=== PATIENT | female | born 1950 | race Caucasian/White ===

== ENCOUNTER 2021-06-08 15:21 | Emergency (ER) | payer MEDICARE ==
[~2021-06-08] VITALS: Ht 157.5 cm; Wt 93.2 kg
[2021-06-08 16:04] VITALS: TEMP 98.1
[2021-06-08] MEDS ORDERED: CEPHALEXIN500 M1 PO (17:30)
[2021-06-08 17:54] VITALS: BP 128/78; PULSE 68
== END 2021-06-08 17:55 | disposition home or self-care (01) ==
LOC: COL.ER 15:21
DX: S51.001A Unspecified open wound of right elbow, initial encounter (principal); Z88.5 Allergy status to narcotic agent; Z23 Encounter for immunization; W19.XXXA Unspecified fall, initial encounter; Y92.512 Supermarket, store or market as the place of occurrence of the external cause

== ENCOUNTER → 2021-07-20 | Outpatient (CLI) | payer MEDICARE ==
[~2021-07-20] MED LIST: CEPHALEXIN500 M1 PO
== END ==
LOC: MC.RAD 14:00
DX: Z12.31 Encounter for screening mammogram for malignant neoplasm of breast (principal)

== ENCOUNTER → 2022-05-08 | Outpatient (CLI) | payer MEDICARE | LOC: MHCPAIN 12:48 | DX: M54.50 Low back pain, unspecified (principal); M53.3 Sacrococcygeal disorders, not elsewhere classified; M47.817 Spondylosis without myelopathy or radiculopathy, lumbosacral region; E11.9 Type 2 diabetes mellitus without complications; M54.16 Radiculopathy, lumbar region | CPT/HCPCS: G0463 ==

== ENCOUNTER → 2022-05-21 | Outpatient (CLI) | payer MEDICARE | LOC: MHCPAIN 12:36 | DX: M47.816 Spondylosis without myelopathy or radiculopathy, lumbar region (principal); M96.1 Postlaminectomy syndrome, not elsewhere classified; M53.3 Sacrococcygeal disorders, not elsewhere classified; M54.16 Radiculopathy, lumbar region | CPT/HCPCS: J1100; Q9967 ==

== ENCOUNTER → 2022-12-03 | Outpatient (CLI) | payer MEDICARE | LOC: MHCPAIN 09-10 14:26 | DX: M53.3 Sacrococcygeal disorders, not elsewhere classified (principal); M47.817 Spondylosis without myelopathy or radiculopathy, lumbosacral region | CPT/HCPCS: G0260; J1040; Q9967 ==

== ENCOUNTER → 2023-01-29 | Outpatient (CLI) | payer MEDICARE ==
[~2023-01-29] MED LIST changes: +MACROBID 1100 MG/CAP PO; +ZOFRAN ODT4 MG PO
== END ==
LOC: MHCPAIN 10-25 10:35
DX: M54.16 Radiculopathy, lumbar region (principal); M54.50 Low back pain, unspecified; M53.3 Sacrococcygeal disorders, not elsewhere classified; E11.9 Type 2 diabetes mellitus without complications
CPT/HCPCS: G0463

== ENCOUNTER → 2023-11-28 | Outpatient (CLI) | payer MEDICARE ==
[~2023-11-28] MED LIST changes: +Lidocaine PF 2% (20 MG/ML) 5 ML VIAL ONE; +Midazolam 2 MG/2 ML VIAL ONE; +fentaNYL 50 MCG/ML 2 ML VIAL ONE
== END ==
LOC: MHCPAIN 08:40
DX: M47.817 Spondylosis without myelopathy or radiculopathy, lumbosacral region (principal); M54.50 Low back pain, unspecified
CPT/HCPCS: J0665; J2250; J3010

== ENCOUNTER → 2024-01-13 | Outpatient (CLI) | payer MEDICARE ==
[~2024-01-13] MED LIST changes: +Iohexol 300 - 10 ML VIAL ONE; -Lidocaine PF 2% (20 MG/ML) 5 ML VIAL ONE; -Midazolam 2 MG/2 ML VIAL ONE; -fentaNYL 50 MCG/ML 2 ML VIAL ONE
== END ==
LOC: MHCPAIN 12:05
DX: M46.1 Sacroiliitis, not elsewhere classified (principal); M54.50 Low back pain, unspecified; M53.3 Sacrococcygeal disorders, not elsewhere classified; M47.898 Other spondylosis, sacral and sacrococcygeal region
CPT/HCPCS: G0260; J0665; J1040; Q9967

== ENCOUNTER → 2024-02-26 | Outpatient (CLI) | payer MEDICARE ==
[~2024-02-26] MED LIST changes: -Iohexol 300 - 10 ML VIAL ONE
== END ==
LOC: MHCPAIN 14:17
DX: M47.896 Other spondylosis, lumbar region (principal); M96.1 Postlaminectomy syndrome, not elsewhere classified
CPT/HCPCS: G0463

== ENCOUNTER 2024-08-07 17:14 | Inpatient (IN) | payer MEDICARE ==
[~2024-08-07] VITALS: Ht 157.5 cm; Wt 82.7 kg
[2024-08-07] MEDS ORDERED: BUSPAR10 MG PO (17:29)
[2024-08-07] MEDS ORDERED: CELEXA 20MG20 MG/TAB PO (17:29)
[2024-08-07] MEDS ORDERED: PROTONIX 40MG T40 MG PO (17:30)
[2024-08-07] MEDS ORDERED: PRAVACHOL80 MG PO (17:30)
[2024-08-07] MEDS ORDERED: TOPROL XL 25MG25 MG PO (17:31)
[2024-08-07] MEDS ORDERED: MOBIC 7.5MG7.5 MG PO (17:31)
[2024-08-07] MEDS ORDERED: PRINIVIL40 MG PO (17:32)
[2024-08-07] MEDS ORDERED: XYZAL5 MG PO (17:32)
[2024-08-07] MEDS ORDERED: ARICEPT 5MG PO (17:33)
[2024-08-07] MEDS ORDERED: AMBIEN 5MG TABLE5 MG PO (17:34)
[2024-08-07 18:09] LABS: PROTHROMBIN TIME 11.1 SECONDS (9.7-12.8)
[2024-08-07 18:11] LABS: ACETONE,SERUM NEGATIVE
[2024-08-07 18:17] LABS: ALANINE AMINOTRANSFERASE 17 U/L (0-55); ALBUMIN 3.5 g/dL (3.4-4.8); ALKALINE PHOSPHATASE 90 U/L (40-150); ANION GAP 14 mmol/L (7-16); AST,SGOT 33 U/L (5-34); BILIRUBIN,TOTAL 0.9 mg/dL (0.2-1.2); BLOOD UREA NITROGEN 10 mg/dL (10-20); CALCIUM 9.6 mg/dL (8.4-10.2); CHLORIDE 100 mEq/L (98-107); CREATININE, serum 0.93 mg/dL (0.57-1.11); LIPASE 30 U/L (8-78); POTASSIUM 4.5 mEq/L (3.5-4.5); SODIUM 134 mEq/L (136-145)
[2024-08-07 18:22] LABS: GLUCOSE 499 mg/dL (70-99)
[2024-08-07 18:34] LABS: BASO # 0.1 K/mm3 (0.0-0.2); BASO % 0.8 % (0.0-2.0); EOS # 0.1 K/mm3 (0.0-0.7); EOS % 0.5 % (0.0-4.0); GRAN # 5.6 K/mm3 (1.4-6.5); GRAN % 61.1 % (42.2-75.2); HEMATOCRIT 29.6 % (37.0-47.0); HEMOGLOBIN 7.5 g/dl (12.5-16.0); LYMPH # 2.7 K/mm3 (1.2-3.4); LYMPH % 29.7 % (20.0-51.0); MEAN CELL VOLUME 75 fl (80.0-100.0); MEAN CORPUSCULAR HEMOGLOBIN 19 pg (27-31); MEAN CORPUSCULAR HGB CONC 25 g/dl (33.0-37.0); MEAN PLATELET VOLUME 11.2 fl (7.4-10.4); MONO # 0.7 K/mm3 (0.1-0.6); MONO % 7.6 % (1.7-9.3); PLATELET COUNT 258 K/mm3 (130-400); RED BLOOD COUNT 3.95 M/mm3 (4.10-5.30)
[2024-08-07 18:43] LABS: TSH w REFLEX 1.565 uIU/mL (0.350-4.940)
[2024-08-07 18:47] LABS: TROPONIN-I < 0.010 ng/mL (0.00-0.033)
[2024-08-07] MEDS ORDERED: Iohexol 300 - 100 ML VIAL IV ONE (18:59)
[2024-08-07] MEDS ORDERED: NS 50 ML IV ONE (19:00)
[2024-08-07] MEDS ORDERED: NS 500 ML IV ONE (19:15)
[2024-08-07 19:27] LABS: COLLECTION METHOD CLEAN CATCH
[2024-08-07 19:43] LABS: URINE APPEARANCE CLEAR (CLEAR/HAZY); URINE BLOOD NEGATIVE (NEGATIVE); URINE COLOR YELLOW (YELLOW); URINE GLUCOSE 3+ (NEGATIVE); URINE KETONE 1+ (NEGATIVE); URINE NITRATE POSITIVE (NEGATIVE); URINE PROTEIN(semi-quant) NEGATIVE (NEGATIVE); URINE UROBILINOGEN 0.2 E.U/dL (0.2-1.0)
[2024-08-07] MEDS ORDERED: Insulin Regular Human (NovoLIN R/HumuLIN R) IV ONE (20:15)
[2024-08-07] MEDS ORDERED: 1: LR 1,000 ML 2: NS 1,000 ML IV SCH (20:30)
[2024-08-07] MEDS ORDERED: Glucagon 1 MG VIAL IM PRN (20:45)
[2024-08-07] MEDS ORDERED: Dextrose (Glucose) 15 GM (4 x 3.75 GM) Chewable TABLET PACK PO PRN (20:45)
[2024-08-07] MEDS ORDERED: Dextrose 50% Water 25 GM/50 ML SYRINGE IV PRN (20:45)
[2024-08-07] MEDS ORDERED: Donepezil 5 MG TAB PO SCH (21:00)
[2024-08-07] MEDS ORDERED: Pantoprazole 40 MG in NS 10 ML IV SCH (21:00)
[2024-08-07] MEDS ORDERED: busPIRone 5 MG TAB PO SCH (21:00)
[2024-08-07 21:30] VITALS: BP 147/69; PULSE 99; TEMP 98.4
--- NOTE | 2024-08-07 21:30 | NUR ---
PT TO FLOOR AT THIS TIME WITH NAI (DAUGHTER) AT BEDSIDE.
[2024-08-07] MEDS ORDERED: Zolpidem 5 MG TAB PO ONE (22:15)
[2024-08-07] MEDS ORDERED: cefTRIAXone 2 G in Water For Injection,Sterile 20 ML IV SCH (22:30)
[2024-08-07 23:38] VITALS: BP 139/74; PULSE 84; TEMP 98.2
[2024-08-08] VITALS (19 sets, daily range): BP systolic 116–149; BP diastolic 55–77; PULSE 80–120; TEMP 97.4–98.9
[2024-08-08] MEDS ORDERED: Insulin Lispro (HumaLOG) SQ SCH
--- NOTE | 2024-08-08 05:12 | NUR ---
PT NOTED TO HAVE MORE CONFUSION THROUGHOUT THE NIGHT. PT SET BED ALARM OFF MULTIPLE TIMES WITHOUT CALLING OUT TO GO TO THE BATHROOM. PT REORIENTED TO CALL LIGHT.
[2024-08-08 06:04] LABS: BASO # 0.1 K/mm3 (0.0-0.2); BASO % 0.9 % (0.0-2.0); EOS # 0.1 K/mm3 (0.0-0.7); EOS % 1.9 % (0.0-4.0); GRAN % 56.5 % (42.2-75.2); LYMPH # 2.2 K/mm3 (1.2-3.4); LYMPH % 31.7 % (20.0-51.0); MEAN CELL VOLUME 74 fl (80.0-100.0); MEAN CORPUSCULAR HGB CONC 26 g/dl (33.0-37.0); MEAN PLATELET VOLUME 11.6 fl (7.4-10.4); MONO # 0.6 K/mm3 (0.1-0.6); MONO % 8.7 % (1.7-9.3); PLATELET COUNT 221 K/mm3 (130-400); RED BLOOD COUNT 3.74 M/mm3 (4.10-5.30); REDCELL DISTRIBUTION WIDTH-CV 19.2 % (11.5-14.5)
--- NOTE | 2024-08-08 06:11 | NUR ---
NOTIFIED MIKAL BAPTISTE AT 0605 OF INCIDENTS WHERE TOO MUCH INSULIN WAS GIVEN. BLOOD SUGAR 212. PT STABLE. NO NEW ORDERS.
[2024-08-08 06:12] LABS: HEMATOCRIT 27.8 % (37.0-47.0); HEMOGLOBIN 7.1 g/dl (12.5-16.0); MEAN CORPUSCULAR HEMOGLOBIN 19 pg (27-31)
[2024-08-08 06:30] LABS: CREATININE, serum 0.75 mg/dL (0.57-1.11); POTASSIUM 3.4 mEq/L (3.5-4.5)
[2024-08-08 06:51] LABS: THYROID STIMULATING HORMONE 2.423 uIU/mL (0.350-4.940)
[2024-08-08] MEDS ORDERED: Citalopram 20 MG TAB PO SCH (09:00)
[2024-08-08] MEDS ORDERED: Influenza Virus Vaccine, Hi-Dose Triv '24-25 (65 YR+) 0.5 ML SYRINGE IM SCH (09:00)
[2024-08-08] MEDS ORDERED: Ondansetron 4 MG/2 ML VIAL IV PRN (09:15)
--- NOTE | 2024-08-08 09:35 | NUR ---
Assessment completed. Pt a/o x3. Not able to state year. Denies pain. Plan for EGD/Colonoscopy later today. Fall precautions in place.
[2024-08-08] MEDS ORDERED: Polyethylene Glycol 3350 119 GM BOTTLE PO ONE (10:00)
--- NOTE | 2024-08-08 10:15 | NUR ---
telephone lineworker met with patient and contacted daughter, Debra Michael #[phone] via telephone to begin assessment and discharge planning. Patient lives alone and has a private duty agency for 6 hours/week and daughter's support to maintain living in her own home. Patient does not drive. PT/OT are ordered and will await their assessments. Debra states that she is not ready for patient to enter a [place] and she cannot afford additional private duty care in the home. Debra states that she plans to take patient to her home upon discharge. Worker left the Medicare.gov share with home health information for daughter to utilize. Patient has dementia, however, has been able to manage in her own home. Debra states that Dr Kim is patient's primary care provider and that she will bring in patient's advance directives. Debra states that she is patient's durable power of traffic law attorney. Worker collaborated with patient's nurse, Tiana regarding the above information. Discharge planning: Home to Debra's home with possibly home health services.
--- NOTE | 2024-08-08 12:25 | NUR ---
Data: Patient and two daughters accepted spiritual care visit offered during Processing Engineer rounds. Patient stated she is [place] despite being listed as [place] on census. Assessment: Daughters desire Cloth Grader Supervisor visit and saccrament of the sick. Plan of Care: Processing Engineer provided supportive listening and prayer. Processing Engineer contacted Cloth Grader Supervisor at [facility] for Cloth Grader Supervisor visit and saccrament of the sick. Processing Engineer requested denomination change by admissions in ED so that Patient will receive communion on Saturday. Chaplains will remain available as needed/requested while Patient is admitted to this hospital.
[2024-08-08] MEDS ORDERED: *Potassium Replacement Protocol MC SCH (14:15)
[2024-08-08] MEDS ORDERED: Potassium Bicarbonate/Citrate 20 MEQ Effervescent TAB PO SCH (14:15)
--- NOTE | 2024-08-08 14:57 | NUR ---
Patient to Endo with MARLA Sandy, via cart,
[2024-08-08] MEDS ORDERED: Polyethylene Glycol 3350 119 GM BOTTLE PO SCH (15:00)
[2024-08-08] MEDS ORDERED: Lidocaine PF 2% (20 MG/ML) 5 ML VIAL ONE (15:22)
--- NOTE | 2024-08-08 16:20 | NUR ---
Pt returned to room via cart. VSS- see flowsheet. Daughters at bedside. Pt denies pain or needs at this time.
--- NOTE | 2024-08-08 19:16 | NUR ---
Diet advanced to ADA and patient tolerated without c/o nausea. Denies pain. Fall precautions in place. Educated patient on the importance of calling instead of getting out of bed on her own. Patient voices understanding. Pt a/o throughout shift but forgetful. Blood sugars high- medicated with insulin per SSI order.
--- NOTE | 2024-08-08 20:00 | NUR ---
PT AWAKE AND RESTING IN BED. SCHEDULED MEDS GIVEN PER eMAR. DURING IV PUSH OF PROTONIX, FLUID BEGAN TO LEAK AROUND IV SITE. IV D/C IN RIGHT ANTECUBITAL. PT DENIES PAIN AT IV SITE OR ANY OTHER DISCOMFORT. UNSUCCESSFUL IV START ATTEMPT IN RIGHT WRIST. CHARGE NURSE NOTIFIED FOR ANOTHER IV ATTEMPT. PT A&OX4 BUT FORGETFUL, OFTEN GETS UP WITHOUT CALLING OUT, AND ASKS THE SAME QUESTIONS REPEATEDLY. PT EDUCATED SECOND HELPER LIGHT USE. BED ALARM ON AND CALL LIGHT WITHIN REACH.
[2024-08-08] MEDS ORDERED: Zolpidem 5 MG TAB PO SCH (21:00)
[2024-08-08] MEDS ORDERED: Pravastatin 20 MG TAB PO SCH (21:00)
--- NOTE | 2024-08-08 23:55 | NUR ---
THIS NURSE AWARE OF HEART RATE READING IN THE 110s AND 120s DURING Q4HR VITAL SIGN MONITORING. CHARGE NURSE (ELANA) NOTIFIED OF MEWS SCORE AT 2000 VITALS. THIS NURSE AND CHARGE NURSE ASSESSED PT TOGETHER. HEART RATE AUSCULATED AND READ 100BPM FOR 1 MIN. VERIFIED WITH RADIAL PULSE AND DYNAMAP. PT BELIEVED TO BE STARTLED UPON AWAKENING.
[2024-08-09] VITALS (17 sets, daily range): BP systolic 113–155; BP diastolic 48–85; PULSE 89–108; TEMP 97.6–99.7
[2024-08-09 06:51] LABS: BASO % 0.6 % (0.0-2.0); EOS # 0.1 K/mm3 (0.0-0.7); EOS % 0.9 % (0.0-4.0); GRAN # 3.9 K/mm3 (1.4-6.5); GRAN % 55.9 % (42.2-75.2); LYMPH # 2.3 K/mm3 (1.2-3.4); LYMPH % 32.9 % (20.0-51.0); MEAN CELL VOLUME 75 fl (80.0-100.0); MEAN CORPUSCULAR HGB CONC 25 g/dl (33.0-37.0); MEAN PLATELET VOLUME 11.4 fl (7.4-10.4); MONO # 0.7 K/mm3 (0.1-0.6); MONO % 9.6 % (1.7-9.3); PLATELET COUNT 205 K/mm3 (130-400); RED BLOOD COUNT 3.34 M/mm3 (4.10-5.30)
[2024-08-09 07:01] LABS: HEMATOCRIT 25.2 % (37.0-47.0); HEMOGLOBIN 6.4 g/dl (12.5-16.0); MEAN CORPUSCULAR HEMOGLOBIN 19 pg (27-31)
[2024-08-09 07:06] LABS: CALCIUM 8.7 mg/dL (8.4-10.2); CREATININE, serum 0.74 mg/dL (0.57-1.11); POTASSIUM 4.1 mEq/L (3.5-4.5)
--- NOTE | 2024-08-09 08:01 | NUR ---
Critical Hemaglobin result called to Dr. Villalpando. No new orders received at this time.
[2024-08-09] MEDS ORDERED: Influenza Virus Vaccine, Hi-Dose Triv '24-25 (65 YR+) 0.5 ML SYRINGE IM SCH (09:00)
[2024-08-09] MEDS ORDERED: Magnesium Sulfate 4% 50 ML IV ONE (09:30)
[2024-08-09] MEDS ORDERED: Insulin Glargine-ygfn (Lantus) SQ SCH (09:45)
--- NOTE | 2024-08-09 11:28 | NUR ---
SW visited with patient about if she had time to review HH agencies and select, patient informed SW that she believes that she already has HH established unsure on the agency and requested SW to contact her daughter (Debra) and inquire. SW called and left voicemail.
[2024-08-09] MEDS ORDERED: Insulin Lispro (HumaLOG) SQ SCH (12:00)
--- NOTE | 2024-08-09 14:00 | NUR ---
Patient and family educated on s/s blood transfusion reaction. Consent signed. Blood verified with MARLA Batista. Transfusion started at 60ml/hr to 20g diffusic to RAC.
[2024-08-09] MEDS ORDERED: Acetaminophen 325 MG TAB PO PRN (14:15)
--- NOTE | 2024-08-09 14:15 | NUR ---
1 unit of PRBC started at 1400. This nurse remained with the patient the first 15 minutes. Patient denies s/s blood transfusion reaction. See flowsheet for VS. Family at bedside.
--- NOTE | 2024-08-09 15:45 | NUR ---
Patient with no s/s blood transfusion reaction. Tranfusion increased to 160ml/hr. Patient denies pain or needs. Family at bedside.
--- NOTE | 2024-08-09 17:53 | NUR ---
Educated patient and patient's family on accucheck, insulin administration and consultation for diabetes education for 08/10. Pt SBA to BR. Fall precautions in place. Denies pain or needs. Family at bedside.
--- NOTE | 2024-08-09 20:00 | NUR ---
Assessment complete. A&Ox3. Forgetful. Denies nausea/shortness of breath. C/O tdfzymfn-ezosuzajduc-gaozoyo given per dr order. VS stable. Bedside glucose 272-SS insulin given per dr order. INT to right AC flushes without difficulty. NO s/s of infiltration noted. Plan of care discussed for this shift to include meds/pain control/calling for questions/concerns. Verbalizes understanding. Call light in reach. Will monitor.
[2024-08-10] VITALS (10 sets, daily range): BP systolic 119–162; BP diastolic 74–86; PULSE 77–105; TEMP 97.1–99
--- NOTE | 2024-08-10 00:30 | NUR ---
Patient resting eyes closed. No s/s of pain or discomfort noted. Call light in reach/bed alarm on. Will monitor.
--- NOTE | 2024-08-10 05:21 | NUR ---
Patient had an uneventful night. VS stable. Currently on RA. Denies pain/nausea/shortness of breath. NC WNL. Denies current needs. Call light in reach. Will monitor.
[2024-08-10 07:48] LABS: BASO # 0.1 K/mm3 (0.0-0.2); BASO % 0.8 % (0.0-2.0); EOS # 0.1 K/mm3 (0.0-0.7); EOS % 1.9 % (0.0-4.0); GRAN # 3.8 K/mm3 (1.4-6.5); GRAN % 52.1 % (42.2-75.2); LYMPH # 2.6 K/mm3 (1.2-3.4); LYMPH % 35.4 % (20.0-51.0); MEAN CELL VOLUME 75 fl (80.0-100.0); MEAN CORPUSCULAR HGB CONC 27 g/dl (33.0-37.0); MEAN PLATELET VOLUME 10.7 fl (7.4-10.4); MONO # 0.7 K/mm3 (0.1-0.6); MONO % 9.5 % (1.7-9.3); PLATELET COUNT 202 K/mm3 (130-400); REDCELL DISTRIBUTION WIDTH-CV 18.9 % (11.5-14.5)
[2024-08-10 07:49] LABS: HEMATOCRIT 30.1 % (37.0-47.0); HEMOGLOBIN 8.2 g/dl (12.5-16.0); MEAN CORPUSCULAR HEMOGLOBIN 21 pg (27-31)
[2024-08-10 08:02] LABS: CALCIUM 8.7 mg/dL (8.4-10.2); CREATININE, serum 0.78 mg/dL (0.57-1.11); POTASSIUM 4.1 mEq/L (3.5-4.5)
[2024-08-10] MEDS ORDERED: Ferrous Sulfate 325 MG TAB PO SCH (08:05)
[2024-08-10] MEDS ORDERED: Influenza Virus Vaccine, Hi-Dose Triv '24-25 (65 YR+) 0.5 ML SYRINGE IM SCH (09:00)
[2024-08-10] MEDS ORDERED: Insulin Glargine-ygfn (Lantus) SQ ONE (10:30)
--- NOTE | 2024-08-10 12:47 | NUR ---
08/10/[id number]-DIABETES EDUCATION CONSULT. 74YO FEMALE ADMITTED FOR HYPERGLYCEMIA/ANEMIA. HISTORY OF T2DM PREVIOUSLY DIET CONTROLLED. BLOOD GLUCOSE ON ADMIT 453 MG/DL, A1C 10.7%. PATIENT'S DAUGHTER, NAI, WAS IN THE ROOM AND STATES SHE WILL BE THIS PATIENT'S CAREGIVER PATIENT PLANS TO MOVE INTO NAI'S HOME UPON DISCHARGE. PROVIDED DEMONSTRATION ON HOW TO MONITOR BLOOD GLUCOSE USING A GLUCOMETER VIA FINGERSTICK. DAUGHTER NAI VERBALIZED UNDERSTANDING, BUT ALSO ASKS ABOUT GETTING A CONTINUOUS GLUCOSE MONITOR (CGM) FOR THE PATIENT. I RECOMMENDED THAT THEY ASK THEIR PCP ABOUT THIS ONCE PATIENT DISCHARGES. WE ALSO DISCUSSED PROPER INSULIN ADMINISTRATION TIPS DAUGHTER WAS CONCERNED ABOUT DOING THE INJECTIONS HERSELF. RECOMMEND ADDITIONAL TEACHING BY NURSING STAFF ON INSULIN INJECTIONS PRIOR TO PATIENT DISCHARGE. ALSO RECOMMEND ORDERING INSULIN IN A 'KWIKPEN' FORM DAUGHTER IS MORE COMFORTABLE WITH ADMINISTERING THIS VERSUS A SYRINGE. REVIEWED BASIC DIABETES DIET INFORMATION: HEALTHY PLATE STYLE OF EATING, LIMITING SUGAR SWEETENED BEVERAGES AND SWEETS/DESSERTS. RECOMMEND PATIENT BE SEEN FOR OUTPATIENT DIABETES EDUATION AFTER DISCHARGE; WILL SEND REFERRAL REQUEST TO PATIENT'S PCP DR. LILIBETH CASTILLO. LINNETTE MARTINEZ,MS,RD,CSSD,LD
[2024-08-10] MEDS ORDERED: TYLENOL 8 HR PO (13:34)
[2024-08-10] MEDS ORDERED: CENTRUM SILVER1 TAB PO (13:35)
--- NOTE | 2024-08-10 14:13 | NUR ---
Sample Box Maker spoke with patient's daughter, Debra to discuss discharge planning. Debra advised at time of discharge, patient will be moving to her home in [place]. SURYA discussed Home Health services with Debra who advised patient had [facility] at one point, however they did not have the best experience with some of the therapists and patient also would refuse at times. Debra's main concern is figuring out what patient's exact needs will be with monitoring glucose and medications. Debra can arrange her schedule to a certain point to help patient, but needs to know what all she will require. SURYA updated Hospitalist that Debra was at bedside and had questions about medications at time of discharge. SURYA will continue to follow up on Home Health if patient and Debra would like to establish services.
--- NOTE | 2024-08-10 19:00 | NUR ---
PATIENT SITTING UP IN BED WITH TV ON WITH FAMILY PRESENT WITH NO ACUTE DISRESS NOTED. PATIENT ON ROOM AIR. INT TO RIGHT AC INTACT WITH NO COMPLICATION NOTED. BEDSIDE SHIFT REPORT COMPLETED WITH JOHN AT THIS TIME. PATIENT DENEIS ANY NEEDS. BED IN LOW POSITION WITH WHEELS LOCKED WITH RAILS UP X3 AND CALL LIGHT WITHIN REACH.
--- NOTE | 2024-08-10 20:43 | NUR ---
PATIENT RESTING IN BED WITH TV ON WITH NO FAMILY PRESENT WITH NO ACUTE DISTRESS NOTED. PATIENT ON ROOM AIR. INT TO RIGHT AC INTACT WITH NO COMPLICATIONS NOTED. ASSESSMENT AND MEDICATION ADMINISTRATION COMPLETED AT THIS TIME. PATIENT TOLERATED WELL. PATIENT DENIES ANY NEEDS AT THIS TIME. BED IN LOW POSITION WITH WHEELS LOCKED WITH RAILS UP X3 AND CALL LIGHT WITHIN REACH.
[2024-08-11] VITALS (17 sets, daily range): BP systolic 111–142; BP diastolic 61–80; PULSE 74–87; TEMP 97.7–98.8
[2024-08-11 06:25] LABS: BASO # 0.1 K/mm3 (0.0-0.2); EOS # 0.2 K/mm3 (0.0-0.7); GRAN # 3.7 K/mm3 (1.4-6.5); GRAN % 53.9 % (42.2-75.2); LYMPH # 2.1 K/mm3 (1.2-3.4); LYMPH % 31.1 % (20.0-51.0); MEAN CELL VOLUME 76 fl (80.0-100.0); MEAN CORPUSCULAR HGB CONC 27 g/dl (33.0-37.0); MEAN PLATELET VOLUME 11.4 fl (7.4-10.4); MONO # 0.7 K/mm3 (0.1-0.6); MONO % 10.7 % (1.7-9.3); PLATELET COUNT 191 K/mm3 (130-400); RED BLOOD COUNT 3.78 M/mm3 (4.10-5.30); REDCELL DISTRIBUTION WIDTH-CV 19.3 % (11.5-14.5)
[2024-08-11 06:33] LABS: HEMATOCRIT 28.7 % (37.0-47.0); HEMOGLOBIN 7.8 g/dl (12.5-16.0); MEAN CORPUSCULAR HEMOGLOBIN 21 pg (27-31)
[2024-08-11 06:58] LABS: CREATININE, serum 0.7 mg/dL (0.57-1.11); POTASSIUM 3.8 mEq/L (3.5-4.5)
--- NOTE | 2024-08-11 07:45 | NUR ---
PATIENT ALERT AND ORIENTED X4 WITH SOME EPISODES OF BEING FORGETFUL. PATIENT ON ROOM AIR. PATIENT VSS WNL. PATIENT NPO AT THIS TIME. FLUIDS PLACED WITH GRAVITY TUBING FOR PROCEDURE. PATIENT DENIES PAIN OR ANY OTHER NEEDS AT THIS TIME. CALL LIGHT WITHIN REACH. BED AT LOWEST POSITION.
--- NOTE | 2024-08-11 07:52 | NUR ---
patient leaving for procedure at this time.
[2024-08-11] MEDS ORDERED: Iohexol 350 - 100 ML VIAL IV ONE (08:50)
[2024-08-11] MEDS ORDERED: Midazolam 2 MG/2 ML VIAL IV SCH (08:52)
[2024-08-11] MEDS ORDERED: fentaNYL 50 MCG/ML 2 ML VIAL IV SCH (08:53)
[2024-08-11] MEDS ORDERED: Insulin Glargine-ygfn (Lantus) SQ SCH ×2 (09:00→10:00)
--- NOTE | 2024-08-11 09:30 | NUR ---
Heather is transferred back to medical floor rm 315. She is awake and alert, pwd with reg and unlabored resps. cms intact to rle, dressing to rt groin site is clean and dry, area is soft. report and handoff of care to Arabella GUTIÉRREZ.
--- NOTE | 2024-08-11 11:02 | NUR ---
Reexaminer was notified by Hospitalist that patient could potentially be discharged later this afternoon. SURYA met with patient and her two daughters, Debra and Annabel. Patient stated she is ready to discharge and plan is to move in with her daughter, Debra here in [place]. SW revisited Home Health and patient is agreeable to have services set up for her. Patient and family would like to use [facility] as they have used them before. SURYA sent referral to Kevin at [facility] via secure email. SURYA also presented IM form to patient who verbalized understanding and provided signature. SURYA placed form in chart and provided copy to patient. Patient also indicated she would like to complete a new DPOA-HC while here and designate her daughters, Debra and Annabel. SURYA assisted patient in completing the form and SURYA and SURYA Almanza provided witness signatures. Patient also signed a Living Will per her request. SURYA placed copies of Advance Directives in patient's chart and provided copies to patient. [facility]
[2024-08-11] MEDS ORDERED: Potassium Bicarbonate/Citrate 20 MEQ Effervescent TAB PO ONE (12:30)
--- NOTE | 2024-08-11 12:30 | NUR ---
PATIENT GROIN SITE C/D/I. NO SIGNS OF BLEEDING AT THIS TIME. GAUZE AND TAPE DRESSING PLACED TO REPLACE THE PREVIOUS ONE. VSS WNL. PATIENT CALL LIGHT WITHIN REACH. BED AT LOWEST POSITION.
[2024-08-11 14:45] LABS: HEMATOCRIT 31.3 % (37.0-47.0); HEMOGLOBIN 8.5 g/dl (12.5-16.0)
[2024-08-11] MEDS ORDERED: FERRO-TIME325 MG PO (14:56)
[2024-08-11] MEDS ORDERED: LANTUS SOLOS100 U/ML SQ (14:58)
[2024-08-11] MEDS ORDERED: FREESTYLE PREC1 EAC5 MC (15:03)
[2024-08-11] MEDS ORDERED: GLUTOSE 1515 GM PO (15:03)
[2024-08-11] MEDS ORDERED: CONTROL SOLUTI1 EAC1 MC (15:03)
[2024-08-11] MEDS ORDERED: GLUCOSE TEST ST1 DEV MC (15:03)
[2024-08-11] MEDS ORDERED: INSULIN PEN NE1 EAC1 MC (15:03)
[2024-08-11] MEDS ORDERED: LANCETS MC (15:03)
[2024-08-11] MEDS ORDERED: PRINIVIL40 MG PO (15:15)
--- NOTE | 2024-08-11 15:24 | NUR ---
SURYA notes pt had discharge orders in. SURYA faxed these to [facility]. Discharge Orellana: live with dtr and home health
--- NOTE | 2024-08-11 17:33 | NUR ---
PATIENT DISCHARGE INSTRUCTIONS GIVEN. PATIENT AND FAMILY MEMBER VERBALIZED UNDERSTANDING. PATIENT RIGHT AC IV DISCONTINUED. PATIENT ESCORTED OUT OF UNIT BY WHEEL CHAIR BY PCT ACCOMPANIED BY FAMILY MEMBER.
== END 2024-08-11 17:35 | disposition home health service (06) | DRG 637 ==
LOC: COL.ER 17:14 → EDBEDREQ 20:31 → MEDICAL 20:36
PROVIDERS: Emergency Medicine; Hospitalist; Physician Assistant; Surgery; ADMIT Internal Medicine
PROC: 0DJ08ZZ Inspection of Upper Intestinal Tract, Via Natural or Artificial Opening Endoscopic (ICD-10-PCS; principal; 2024-08-08 15:30)
PROC: 0DJD8ZZ Inspection of Lower Intestinal Tract, Via Natural or Artificial Opening Endoscopic (ICD-10-PCS; 2024-08-08 15:30)
DX: E11.65 Type 2 diabetes mellitus with hyperglycemia (principal); I26.99 Other pulmonary embolism without acute cor pulmonale; N39.0 Urinary tract infection, site not specified; I82.402 Acute embolism and thrombosis of unspecified deep veins of left lower extremity; K57.90 Diverticulosis of intestine, part unspecified, without perforation or abscess without bleeding; K44.9 Diaphragmatic hernia without obstruction or gangrene; D50.9 Iron deficiency anemia, unspecified; G30.9 Alzheimer's disease, unspecified; B96.20 Unspecified Escherichia coli [E. coli] as the cause of diseases classified elsewhere; F02.80 Dementia in other diseases classified elsewhere, unspecified severity, without behavioral disturbance, psychotic disturbance, mood disturbance, and anxiety; K21.9 Gastro-esophageal reflux disease without esophagitis; I10 Essential (primary) hypertension; E87.6 Hypokalemia; E78.5 Hyperlipidemia, unspecified; Z88.5 Allergy status to narcotic agent; Z88.2 Allergy status to sulfonamides; Z79.4 Long term (current) use of insulin; Z79.899 Other long term (current) drug therapy; Z88.8 Allergy status to other drugs, medicaments and biological substances; Z23 Encounter for immunization
CPT/HCPCS: J0696; J0780; J1644; J1815; J2250; J2470; J2704; J3010; J3475; J7040; P9016; Q9967

== ENCOUNTER 2024-08-14 04:46 | Inpatient (IN) | payer MEDICARE ==
[~2024-08-14] VITALS: Ht 157.5 cm; Wt 86.6 kg
[~2024-08-14 04:46] MED LIST changes: +AMBIEN 5MG TABLE5 MG PO; +ARICEPT 5MG PO; +BUSPAR10 MG PO; +CELEXA 20MG20 MG/TAB PO; +CENTRUM SILVER1 TAB PO; +CONTROL SOLUTI1 EAC1 MC; +FERRO-TIME325 MG PO; +FREESTYLE PREC1 EAC5 MC; +GLUCOSE TEST ST1 DEV MC; +GLUTOSE 1515 GM PO; +INSULIN PEN NE1 EAC1 MC; +LANCETS MC; +LANTUS SOLOS100 U/ML SQ; +MOBIC 7.5MG7.5 MG PO; +PRAVACHOL80 MG PO; +PRINIVIL40 MG PO; +PROTONIX 40MG T40 MG PO; +TOPROL XL 25MG25 MG PO; +TYLENOL 8 HR PO; +XYZAL5 MG PO
[2024-08-14] MEDS ORDERED: NS 1,000 ML IV ONE ×4 (05:15→16:00)
[2024-08-14 05:19] LABS: BASO # 0.1 K/mm3 (0.0-0.2); BASO % 0.7 % (0.0-2.0); EOS # 0.1 K/mm3 (0.0-0.7); GRAN # 7.5 K/mm3 (1.4-6.5); GRAN % 55.9 % (42.2-75.2); LYMPH # 4.8 K/mm3 (1.2-3.4); LYMPH % 35.3 % (20.0-51.0); MEAN CORPUSCULAR HGB CONC 25 g/dl (33.0-37.0); MEAN PLATELET VOLUME 11.2 fl (7.4-10.4); MONO # 0.8 K/mm3 (0.1-0.6); PLATELET COUNT 208 K/mm3 (130-400); REDCELL DISTRIBUTION WIDTH-CV 21.2 % (11.5-14.5)
[2024-08-14 05:21] LABS: HEMATOCRIT 35.4 % (37.0-47.0); MEAN CORPUSCULAR HEMOGLOBIN 21 pg (27-31)
[2024-08-14 05:24] LABS: MEAN CELL VOLUME 82 fl (80.0-100.0)
[2024-08-14 05:33] LABS: ALBUMIN 3.3 g/dL (3.4-4.8); BILIRUBIN,TOTAL 0.6 mg/dL (0.2-1.2); C-REACTIVE PROTEIN 0.89 mg/dL (0.00-0.50); CALCIUM 9.4 mg/dL (8.4-10.2); CREATININE, serum 1.46 mg/dL (0.57-1.11); POTASSIUM 4.7 mEq/L (3.5-4.5); TOTAL PROTEIN 6.8 g/dl (6.2-8.1)
[2024-08-14 05:39] LABS: INR 1.1 (0.8-3.0); PROTHROMBIN TIME 11.9 SECONDS (9.7-12.8); TROPONIN-I 0.012 ng/mL (0.00-0.033)
[2024-08-14 05:59] LABS: ACETONE,SERUM NEGATIVE
[2024-08-14 06:07] LABS: MAGNESIUM 2.1 mg/dL (1.6-2.6)
[2024-08-14 07:45] LABS: COLLECTION METHOD IN
[2024-08-14 07:54] LABS: PH 5.5 (5.0-8.5); URINE APPEARANCE CLOUDY (CLEAR/HAZY); URINE BLOOD 3+ (NEGATIVE); URINE COLOR YELLOW (YELLOW); URINE GLUCOSE 3+ (NEGATIVE); URINE KETONE NEGATIVE (NEGATIVE); URINE NITRATE NEGATIVE (NEGATIVE); URINE PROTEIN(semi-quant) 2+ (NEGATIVE); URINE UROBILINOGEN 0.2 E.U/dL (0.2-1.0)
[2024-08-14] MEDS ORDERED: cefTRIAXone 1 G in Water For Injection,Sterile 10 ML IV ONE (08:30)
[2024-08-14 08:47] LABS: URINE RBC >50 /hpf (0-2)
[2024-08-14 08:48] LABS: URINE BACTERIA MODERATE /hpf (NONE SEEN)
[2024-08-14] MEDS ORDERED: Insulin Lispro (HumaLOG) SQ ONE (10:30)
--- NOTE | 2024-08-14 13:00 | NUR ---
PATIENT ARRIVED TO MEDICAL FLOOR AT APPROX 1245. PATIENT IS ALERT AND ORIENTED BUT LETHARGIC. VSS AT THIS TIME. PATIENT STABLE ON RA. INTAKE AND ADMISSION ASSESSMENT COMPLETE. DENIES PAIN OR DISCOMFORT AT THIS TIME. VILLAGOMEZ DRAINING DEPENDENTLY WITH CLEAR YELLOW URINE NOTED IN THE BAG.
--- NOTE | 2024-08-14 13:30 | NUR ---
THIS RN WAS NOTIFIED BY PCT THAT PATIENT HAD AN INCONTIENT EPISODE OF STOOL. PATIENT THEN AMBULATED TO RESTROOM, AND HAD MORE LOOSE STOOL. THEN, PATIENT WALKED BACK TO BED AND HAD AN EPISODE OF EMESIS. PCT SAID THE STOOL/EMESIS DID NOT APPEAR BLOODY OR ABNORMAL. PATIENT RESTING IN BED AT THIS TIME.
[2024-08-14] MEDS ORDERED: Acetaminophen 500 MG TAB PO PRN (14:00)
[2024-08-14] MEDS ORDERED: Ondansetron 4 MG/2 ML VIAL IV PRN (14:00)
[2024-08-14] MEDS ORDERED: Insulin Lispro (HumaLOG) SQ SCH ×2 (14:15→21:00)
[2024-08-14] MEDS ORDERED: Dextrose (Glucose) 15 GM (4 x 3.75 GM) Chewable TABLET PACK PO PRN (14:15)
[2024-08-14] MEDS ORDERED: Glucagon 1 MG VIAL IM PRN (14:15)
[2024-08-14] MEDS ORDERED: Dextrose 50% Water 25 GM/50 ML SYRINGE IV PRN (14:15)
[2024-08-14 15:49] VITALS: BP 87/55; PULSE 79; TEMP 98.2
--- NOTE | 2024-08-14 16:00 | NUR ---
PATIENT HAS BP OF 80/55. PATIENT ASYMPTOMATIC AT THIS TIME. THIS RN NOTIFIED DR EDGAR. SEE NEW ORDERS.
[2024-08-14 16:44] VITALS: BP_SYST 87
--- NOTE | 2024-08-14 17:00 | NUR ---
PATIENT C/O LEFT SIDED FLANK/ABD PAIN. ABD IS SOFT, WITH NO ABNORMALITIES. THIS RN APPLIED ICE TO AREA
[2024-08-14 19:40] VITALS: BP 102/65; PULSE 92; TEMP 98
[2024-08-14] MEDS ORDERED: Donepezil 5 MG TAB PO SCH (21:00)
[2024-08-14] MEDS ORDERED: busPIRone 5 MG TAB PO SCH (21:00)
[2024-08-14] MEDS ORDERED: Zolpidem 5 MG TAB PO SCH (21:00)
[2024-08-14 21:35] VITALS: BP_SYST 102
[2024-08-14 23:45] VITALS: BP 73/40; BP 93/55; PULSE 55; TEMP 98.4
[2024-08-15] VITALS (13 sets, daily range): BP systolic 85–130; BP diastolic 54–69; PULSE 74–102; TEMP 97.5–98.6
[2024-08-15 06:33] LABS: BASO # 0.1 K/mm3 (0.0-0.2); BASO % 0.7 % (0.0-2.0); EOS # 0.1 K/mm3 (0.0-0.7); EOS % 0.6 % (0.0-4.0); GRAN # 6.6 K/mm3 (1.4-6.5); GRAN % 61.5 % (42.2-75.2); LYMPH # 3.1 K/mm3 (1.2-3.4); LYMPH % 28.7 % (20.0-51.0); MEAN CELL VOLUME 81 fl (80.0-100.0); MEAN CORPUSCULAR HGB CONC 26 g/dl (33.0-37.0); MEAN PLATELET VOLUME 11.5 fl (7.4-10.4); MONO # 0.9 K/mm3 (0.1-0.6); MONO % 8.2 % (1.7-9.3); PLATELET COUNT 132 K/mm3 (130-400); RED BLOOD COUNT 3.42 M/mm3 (4.10-5.30); REDCELL DISTRIBUTION WIDTH-CV 21.2 % (11.5-14.5)
[2024-08-15 06:40] LABS: HEMATOCRIT 27.8 % (37.0-47.0); HEMOGLOBIN 7.2 g/dl (12.5-16.0); MEAN CORPUSCULAR HEMOGLOBIN 21 pg (27-31)
[2024-08-15 06:46] LABS: CALCIUM 8.7 mg/dL (8.4-10.2); CREATININE, serum 1.95 mg/dL (0.57-1.11); POTASSIUM 4.1 mEq/L (3.5-4.5)
[2024-08-15] MEDS ORDERED: Ferrous Sulfate 325 MG TAB PO SCH (08:00)
[2024-08-15] MEDS ORDERED: Insulin Glargine-ygfn (Lantus) SQ SCH (09:00)
[2024-08-15] MEDS ORDERED: Levocetirizine 5 MG **** subs to Cetirizine 10 MG PO SCH (09:00)
[2024-08-15] MEDS ORDERED: Citalopram 20 MG TAB PO SCH (09:00)
[2024-08-15] MEDS ORDERED: Cetirizine 10 MG TAB PO SCH (09:00)
--- NOTE | 2024-08-15 12:25 | NUR ---
Data: Patient accepted spiritual care visit offered during Plate Mounter rounds. Assessment: Patient desired prayer. Patient is sleepy. Plan of Care: Plate Mounter provided supportive listening; prayer; and a rosary. Patient thanked Plate Mounter for the visit. Chaplains will remain available as needed/requested while Patient is admitted to this hospital.
[2024-08-15] MEDS ORDERED: cefTRIAXone 1 G in Water For Injection,Sterile 10 ML IV SCH (14:30)
--- NOTE | 2024-08-15 17:18 | NUR ---
Parts Specialist met with patient who was admitted to this hospital earlier in the week (08/07-08/11) and discharged home with her daughter, Debra with [facility]. Patient sees Dr. Kim for primary care and was not able to see her in between hospital stays. Patient has DPOA-HC designating her daughters, Debra and Annabel. SW provided Medicare.gov list of SNF options for patient to review as that is the recommendation. Patient will review these options with Debra once she arrives. SW followed up with Debra who stated their first preference is [facility] but were open to having referrals also sent to [facility] and [facility]. SW sent referrals to all three via secure email. Debra advised patient may need LTC/AL after a skilled stay depending on her progress. Debra plans to contact the [facility] to explore patient's benefits and advised patient may need to apply for Medicaid as well. SW to follow up with Shakila Financial Counselor. Discharge Plan: SNF
--- NOTE | 2024-08-15 18:01 | NUR ---
PRN TYLENOL GIVEN FOR HEADACHE. BP 102/62. ANSWERED PT AND DAUGHTER'S (NAI) QUESTIONS ABOUT INSULIN ADMINISTRATION, PENDING URINE & BLOOD CULTURE RESULTS, AND INSURANCE COVERAGE. THIS NURSE ANSWERED TO THE BEST OF HER ABILITY AND RECOMMENDED APPROPRIATE RESOURCES FOR MORE DEFINITE ANSWERS R/T INSURANCE AND INSULIN ADMINISTRATION. NO FURTHER CONCERNS AT THIS TIME. VILLAGOMEZ CATHETER DRAINING WELL. GLASSES IN PLACE. BED ALARM ON AND CALL LIGHT WITHIN REACH. DAUGHTER AT BEDSIDE.
[2024-08-15] MEDS ORDERED: Pravastatin 20 MG TAB PO SCH (21:00)
[2024-08-16] VITALS (11 sets, daily range): BP systolic 97–140; BP diastolic 49–69; PULSE 68–100; TEMP 97.3–98.4
[2024-08-16 06:23] LABS: BASO # 0.1 K/mm3 (0.0-0.2); BASO % 1.1 % (0.0-2.0); EOS # 0.2 K/mm3 (0.0-0.7); GRAN # 6.7 K/mm3 (1.4-6.5); GRAN % 58.9 % (42.2-75.2); LYMPH # 3.2 K/mm3 (1.2-3.4); LYMPH % 27.9 % (20.0-51.0); MEAN CELL VOLUME 79 fl (80.0-100.0); MEAN CORPUSCULAR HGB CONC 27 g/dl (33.0-37.0); MEAN PLATELET VOLUME 11.2 fl (7.4-10.4); MONO # 1.1 K/mm3 (0.1-0.6); MONO % 9.8 % (1.7-9.3); PLATELET COUNT 144 K/mm3 (130-400); RED BLOOD COUNT 3.94 M/mm3 (4.10-5.30); REDCELL DISTRIBUTION WIDTH-CV 21.2 % (11.5-14.5)
[2024-08-16 06:41] LABS: CALCIUM 9.4 mg/dL (8.4-10.2); CREATININE, serum 1.95 mg/dL (0.57-1.11); POTASSIUM 3.9 mEq/L (3.5-4.5)
[2024-08-16 06:43] LABS: HEMATOCRIT 31.3 % (37.0-47.0); HEMOGLOBIN 8.3 g/dl (12.5-16.0); MEAN CORPUSCULAR HEMOGLOBIN 21 pg (27-31)
--- NOTE | 2024-08-16 08:00 | NUR ---
CALLED TO PT'S ROOM D/T PT HAVING INCONTINENT STOOL AROUND 0730. MOLECULAR TECHNOLOGIST NURSE REPORTED PT HAVING ANOTHER INCONTINENT STOOL JUST BEFORE SHIFT CHANGE AROUND 0530. PT STATES SHE DOES NOT RECALL HAVING THE BOWEL MOVEMENT, BUT SHE WAKES UP AND IT IS THERE. PT CLEANED WITH WARM WIPES AND LINEN/GOWNS CHANGED. SHIFT ASSESSMENT COMPLETE AND DOCUMENTED. VSS. PT DENIES PAIN.
--- NOTE | 2024-08-16 10:47 | NUR ---
THIS NURSE FOUND AN UNKNOWN AND UNWRAPPED PILL IN PT'S ROOM NEAR THE SINK. USED LEXICOMP TO IDENTIFY DRUG PRAVASTATIN. CONFIRMED WITH ROLLER MANRD. DRUG WASTED.
[2024-08-16 11:23] LABS: CLOSTRIDIUM DIFF A/B NEG
--- NOTE | 2024-08-16 12:08 | NUR ---
[facility] called and stated they can accept patient for services upon discharge.
[2024-08-17] VITALS (13 sets, daily range): BP systolic 102–143; BP diastolic 50–77; PULSE 77–89; TEMP 97.8–98.8
--- NOTE | 2024-08-17 08:00 | NUR ---
Patient laying in bed, A&Ox4. VSS. IV CDI. Murphy intact, but leaking urine. Additional 2ml in balloon. Patient assisted with getting clean. Denies pain. Call light within reach. Bed alarm on
--- NOTE | 2024-08-17 09:41 | NUR ---
Murphy removed, balloon intact. 10ml removed from balloon. Pericare provided before and after removal. Nurse instructed the patient to call when needing to void. Patient positioned for comfort. Call light within reach. Bed alarm on
--- NOTE | 2024-08-17 13:59 | NUR ---
Production Supply Equipment Tender contacted Anibal at [facility] and faxed clinical updates. Anibal confirmed they are able to accept patient. SURYA met with patient and daughter, Debra to provide update. Discharge Plan; Home
[2024-08-18] VITALS (11 sets, daily range): BP systolic 110–145; BP diastolic 50–77; PULSE 73–86; TEMP 97.4–98.8
--- NOTE | 2024-08-18 08:00 | NUR ---
Patient sleeping in bed, easily awakened with verbal command. A&Ox3. VSS. IV CDI. Denies pain and discomfort. Call light within reach. Bed alarm on
[2024-08-18 09:38] LABS: BASO # 0.1 K/mm3 (0.0-0.2); BASO % 0.8 % (0.0-2.0); EOS # 0.2 K/mm3 (0.0-0.7); EOS % 2.8 % (0.0-4.0); GRAN # 3.7 K/mm3 (1.4-6.5); LYMPH # 1.8 K/mm3 (1.2-3.4); LYMPH % 28.5 % (20.0-51.0); MEAN CELL VOLUME 80 fl (80.0-100.0); MEAN CORPUSCULAR HGB CONC 27 g/dl (33.0-37.0); MEAN PLATELET VOLUME 11.4 fl (7.4-10.4); MONO # 0.7 K/mm3 (0.1-0.6); MONO % 10.6 % (1.7-9.3); PLATELET COUNT 125 K/mm3 (130-400); RED BLOOD COUNT 3.32 M/mm3 (4.10-5.30); REDCELL DISTRIBUTION WIDTH-CV 20.8 % (11.5-14.5)
[2024-08-18 09:40] LABS: HEMATOCRIT 26.4 % (37.0-47.0); MEAN CORPUSCULAR HEMOGLOBIN 21 pg (27-31)
[2024-08-18 09:49] LABS: CREATININE, serum 0.81 mg/dL (0.57-1.11); POTASSIUM 3.7 mEq/L (3.5-4.5)
[2024-08-18 12:08] LABS: HEMATOCRIT 26.6 % (37.0-47.0); HEMOGLOBIN 7.1 g/dl (12.5-16.0)
--- NOTE | 2024-08-18 14:20 | NUR ---
Anibal at [facility] expressed concern about Dr. Hardy follow up and what that work up may entail. SURYA spoke with Hospitalist and patient's daughter, Debra and all are agreeable to have appointment withheld until she is done with skilled. SURYA contacted Dr. Hardy's office to cancel appointment and Anibal with [facility] advised they would reschedule the appointment. Patient's hemoglobin was rechecked and patient to have transfusion today. SURYA faxed clinical updates to Anibal. SURYA met with patient to present and review IM. Patient verbalized understanding and provided signature. SURYA placed form in chart and provided copy to patient. SURYA updated patient and her daughter that discharge won't be today. Discharge Plan: [facility]
[2024-08-18] MEDS ORDERED: NS 250 ML IV ONE (14:30)
--- NOTE | 2024-08-18 17:35 | NUR ---
Anesthesia at the bedside for lab draw. LF ankle site for lab draw, patient tolerated well.
[2024-08-19] VITALS (13 sets, daily range): BP systolic 119–157; BP diastolic 50–93; PULSE 71–79; TEMP 97.4–98.3
--- NOTE | 2024-08-19 07:22 | NUR ---
pstient lying in bed, alert and oriented x4. denies chest pain and shortness of breath. IV in RF infiltrated during first 15 minutes of blood administration, boathouse keeper and Melina, MERCURY RECOVERER in to attempt IV access, new IV placed in NORMA/RAC, IV patnet, site CDI. blood double verified, transfusion administered per protocol. ambulates SBA with walker, steady gait. fall precautions in place, call light within reach. pt has no further needs, questions or concerns at this time.
[2024-08-19 07:56] LABS: BASO # 0.1 K/mm3 (0.0-0.2); EOS # 0.3 K/mm3 (0.0-0.7); EOS % 3.1 % (0.0-4.0); GRAN # 4.9 K/mm3 (1.4-6.5); GRAN % 60.6 % (42.2-75.2); LYMPH # 1.8 K/mm3 (1.2-3.4); LYMPH % 21.7 % (20.0-51.0); MEAN CELL VOLUME 81 fl (80.0-100.0); MEAN CORPUSCULAR HGB CONC 29 g/dl (33.0-37.0); MEAN PLATELET VOLUME 11.2 fl (7.4-10.4); MONO # 1.1 K/mm3 (0.1-0.6); MONO % 13.4 % (1.7-9.3); PLATELET COUNT 140 K/mm3 (130-400); RED BLOOD COUNT 3.73 M/mm3 (4.10-5.30); REDCELL DISTRIBUTION WIDTH-CV 20.4 % (11.5-14.5)
[2024-08-19 07:57] LABS: HEMATOCRIT 30.3 % (37.0-47.0); HEMOGLOBIN 8.7 g/dl (12.5-16.0); MEAN CORPUSCULAR HEMOGLOBIN 23 pg (27-31)
--- NOTE | 2024-08-19 08:50 | NUR ---
PATIENT LAYING IN BED RESTING. PATIENT ALERT AND ORIENTED X3. DENIES PAIN AT THIS TIME.PATIENT TELEMETRY MONITORING INPLACE.ON ROOM AIR.PATIENT ZOSYN INFUSING PER EMAR ORDER. PATIENT HAD A BOWEL MOVEMENT THIS MORNING. NO FURTHER NEEDS AT THIS TIME. CALL LIGHT WITHIN REACH. BED AT LOWEST POSITION. BED ALARM ON.
[2024-08-19] MEDS ORDERED: CEFTIN 250250 MG/TAB PO (10:08)
--- NOTE | 2024-08-19 12:47 | NUR ---
Rattlesnake Farmer faxed clinical updates to Anibal at [facility] who advised they can accept today if cleared for discharge. SW attended clinical rounds with the team and patient can be released today. SW faxed discharge orders and transport time was set for 1300. SW notified patient's daughter, Debra at bedside of transport time. Discharge Plan: [facility]
--- NOTE | 2024-08-19 13:05 | NUR ---
PATIENT RIGHT AC IV REMOVED. PATIENT ASSITED WITH DRESSING. PATIENT TELEMETRY D/C. PATIENT ESCORTED OUT OF UNIT VIA WHEEL CHAIR BY [facility] STAFF AND DAUGHTER.
--- NOTE | 2024-08-19 13:15 | NUR ---
PATIENT REPORT GIVEN TO WINNIE FROM [facility]. WINNIE DENIES HAVING ANYMORE QUESTIONS.
== END 2024-08-19 13:20 | DRG 871 ==
LOC: COL.ER 04:46 → MEDICAL 12:22 → SURG 16:21 → MEDICAL 16:21
PROVIDERS: Emergency Medicine; Physician Assistant; ADMIT Internal Medicine
DX: A41.9 Sepsis, unspecified organism (principal); R65.21 Severe sepsis with septic shock; E87.20 Acidosis, unspecified; N17.9 Acute kidney failure, unspecified; N39.0 Urinary tract infection, site not specified; Z66 Do not resuscitate; R65.20 Severe sepsis without septic shock; R29.6 Repeated falls; G30.9 Alzheimer's disease, unspecified; F02.80 Dementia in other diseases classified elsewhere, unspecified severity, without behavioral disturbance, psychotic disturbance, mood disturbance, and anxiety; E11.65 Type 2 diabetes mellitus with hyperglycemia; E86.0 Dehydration; E78.5 Hyperlipidemia, unspecified; I10 Essential (primary) hypertension; K21.9 Gastro-esophageal reflux disease without esophagitis; K44.9 Diaphragmatic hernia without obstruction or gangrene; D50.8 Other iron deficiency anemias; I95.9 Hypotension, unspecified; Z79.899 Other long term (current) drug therapy; Z79.4 Long term (current) use of insulin; Z86.711 Personal history of pulmonary embolism; Z86.718 Personal history of other venous thrombosis and embolism; Z87.440 Personal history of urinary (tract) infections; Z88.2 Allergy status to sulfonamides; Z88.8 Allergy status to other drugs, medicaments and biological substances
CPT/HCPCS: A4314; J0696; J1650; J1815; J2543; J7030; J7050; P9016